=== PATIENT | male | born 1970 | race Caucasian/White ===

== ENCOUNTER 2018-06-13 10:24 | Emergency (ER) | payer BC ==
[~2018-06-13] VITALS: Ht 172.7 cm; Wt 75.7 kg
[~2018-06-13 10:24] MED LIST: ACYC5CRE2 TP; NO HOME MEDS; PRED20TA PO
[2018-06-13 11:02] LABS: CLARITY,URINE CLOUDY (Clear); COLOR,URINE AMBER (Yellow); GLUCOSE, URINE NEGATIVE (Neg); KETONES,URINE 15 mg/dl (Neg); LEUKOCYTE ESTERASE ,URINE NEGATIVE (Neg); NITRITES, URINE NEGATIVE (Neg); OCCULT BLOOD,URINE SMALL (Neg); PH,URINE 5.5 (4.8-8.0); PROTEIN,URINE >=300 mg/dl (Neg)
[2018-06-13 11:04] LABS: UA COLLECTION TYPE CLN CATCH MIDSTREAM
[2018-06-13 11:07] LABS: MUCUS STRANDS MODERATE /LPF (Neg); SQUAMOUS EPITHELIAL CELL,UR FEW /LPF (FEW)
[2018-06-13 11:08] LABS: BACTERIA,URINE 1+ /HPF (Neg)
[2018-06-13 11:09] LABS: WBC,URINE 0-4 /HPF (0-4)
[2018-06-13 11:11] LABS: BASOPHILS % (AUTO) 0.2 % (0-1); EOSINOPHILS # (AUTO) 0.1 X10'3 (0-0.9); EOSINOPHILS % (AUTO) 0.9 % (0-6); HEMOGLOBIN 14.4 g/dl (14.0-17.9); LYMPHOCYTES # (AUTO) 0.8 X10'3 (1.1-4.8); LYMPHOCYTES % (AUTO) 6.1 % (21-51); MEAN CORPUSCULAR HEMOGLOBIN 31.7 PG (27.0-31.0); MEAN CORPUSCULAR HGB CONC 33.5 % (33.0-36.5); MEAN CORPUSCULAR VOLUME 94.6 FL (78-98); MONOCYTES # (AUTO) 1.1 X10'3 (0-0.9); MONOCYTES % (AUTO) 8.2 % (2-12); NEUTROPHILS # (AUTO) 11.6 X10'3 (1.8-7.7); NEUTROPHILS % (AUTO) 84.6 % (42-75); PLATELET COUNT 247 X10'3 (140-440); RED BLOOD COUNT 4.54 X10'6 (4.70-6.10); WHITE BLOOD COUNT 13.7 X10'3 (4.5-11.0)
[2018-06-13] MEDS ORDERED: albuterol 2.5 MG/3 ML nebule NEB ONE (11:15)
[2018-06-13] MEDS ORDERED: ondansetron/PF 4mg/2ml inj IV ONE (11:15)
[2018-06-13] MEDS ORDERED: normal saline 1000ML IV soln IVB ONE (11:15)
[2018-06-13] MEDS ORDERED: acetaminophen 325mg tablet PO STA (11:15)
[2018-06-13] MEDS ORDERED: ketorolac trometh. 30mg/ml inj. IV ONE (11:15)
[2018-06-13 11:26] LABS: LARGE PLATELETS FEW; PLATELET ESTIMATE NORMAL
[2018-06-13 11:27] LABS: ALANINE AMINOTRANSFERASE 25 U/L (12-78); ALBUMIN 2.9 G/DL (3.4-5.0); ALBUMIN/GLOBULIN RATIO 0.5 (1.1-1.5); ALKALINE PHOSPHATASE 102 IU/L (46-116); ANION GAP 13 (8-16); ASPARTATE AMINO TRANSFERASE 11 U/L (10-37); BLOOD UREA NITROGEN 10 MG/DL (7-18); BUN/CREATININE RATIO 10.8 (5.4-32.0); CALCIUM 9.6 MG/DL (8.5-10.1); CHLORIDE 94 MMOL/L (99-107); CREATININE 0.93 MG/DL (0.60-1.10); GLUCOSE 112 MG/DL (70-104); POTASSIUM 3.7 MMOL/L (3.5-5.1); SODIUM 133 MMOL/L (135-145); TOTAL CARBON DIOXIDE 25.8 MMOL/L (24-32); TOTAL PROTEIN 8.3 G/DL (6.4-8.2); eGFR 87 ML/MIN
[2018-06-13 11:29] LABS: PARTIAL THROMBOPLASTIN TIME 35 SECONDS (22-32)
[2018-06-13] MEDS ORDERED: levoFLOXACIN-Levaquin 750MG/D5 150 ML IV ONE (11:35)
[2018-06-13 12:48] VITALS: BP 112/63
[2018-06-13] MEDS ORDERED: HYDROcodone/acetaminophen 10/325mg tab PO ONE (12:55)
[2018-06-13] MEDS ORDERED: TAM75C PO (13:46)
[2018-06-13] MEDS ORDERED: HYDR-4353 PO (13:46)
[2018-06-13] MEDS ORDERED: LEVO750T21 PO (13:46)
== END 2018-06-13 14:01 | disposition home or self-care (01) ==
LOC: ER 10:24
DX: J18.9 Pneumonia, unspecified organism (principal); R11.2 Nausea with vomiting, unspecified; F17.200 Nicotine dependence, unspecified, uncomplicated; Z98.890 Other specified postprocedural states; Z79.899 Other long term (current) drug therapy
CPT/HCPCS: 36415; 71045; 80053; 81001; 83605; 84145; 85025; 85610; 85730; 87040; 93005; 94640; 94760; 96361; 96365; 96366; 96375; 99284; J1885; J1956; J2405; J7030

== ENCOUNTER 2021-11-19 18:54 | Inpatient (IN) | payer BC ==
[~2021-11-19] VITALS: Ht 177.8 cm; Wt 75.0 kg
[~2021-11-19 18:54] MED LIST changes: -ACYC5CRE2 TP; -PRED20TA PO
--- NOTE | 2021-11-19 19:25 | NUR ---
PER [facility], ONLY CHEST XRAY FOR NOW
[2021-11-19 20:50] LABS: BASOPHILS % (AUTO) 0.3 % (0-1); EOSINOPHILS # (AUTO) 0.1 X10'3 (0-0.9); EOSINOPHILS % (AUTO) 1.1 % (0-6); HEMATOCRIT 40.1 % (42.0-52.0); HEMOGLOBIN 13.3 g/dl (14.0-17.9); LYMPHOCYTES # (AUTO) 0.8 X10'3 (1.1-4.8); LYMPHOCYTES % (AUTO) 7.3 % (21-51); MEAN CORPUSCULAR HEMOGLOBIN 31.1 PG (27.0-31.0); MEAN CORPUSCULAR HGB CONC 33.3 g/dL (33.0-36.5); MEAN CORPUSCULAR VOLUME 93.5 FL (78-98); MEAN PLATELET VOLUME 7.6 FL (7.4-10.4); MONOCYTES # (AUTO) 1.2 X10'3 (0-0.9); MONOCYTES % (AUTO) 10.5 % (2-12); NEUTROPHILS % (AUTO) 80.8 % (42-75); PLATELET COUNT 278 X10'3 (140-440); RED BLOOD COUNT 4.29 X10'6 (4.70-6.10); RED CELL DISTRIBUTION WIDTH 13.9 % (11.5-14.5); WHITE BLOOD COUNT 11.2 X10'3 (4.5-11.0)
[2021-11-19 20:58] LABS: ALANINE AMINOTRANSFERASE 23 U/L (12-78); ALBUMIN 2.2 G/DL (3.4-5.0); ALBUMIN/GLOBULIN RATIO 0.5 (1.1-1.5); ALKALINE PHOSPHATASE 129 IU/L (46-116); ANION GAP 8 (8-16); ASPARTATE AMINO TRANSFERASE 10 U/L (10-37); BILIRUBIN,TOTAL 0.4 MG/DL (0.1-1.0); BLOOD UREA NITROGEN 5 MG/DL (7-18); BUN/CREATININE RATIO 6.8 (5.4-32.0); CALCIUM 8.8 MG/DL (8.5-10.1); CHLORIDE 98 MMOL/L (99-107); CREATININE 0.74 MG/DL (0.60-1.10); GLUCOSE 114 MG/DL (70-104); POTASSIUM 3.8 MMOL/L (3.5-5.1); SODIUM 138 MMOL/L (135-145); TOTAL CARBON DIOXIDE 32.2 MMOL/L (24-32); eGFR > 90 ML/MIN
[2021-11-19] MEDS ORDERED: cefTRIAXone 1g/NS 100ml IVPB 100 ML IV ONE (23:00)
[2021-11-19] MEDS ORDERED: azithromycin/NS 500mg/250ml 250 ML IV ONE (23:00)
[2021-11-20 04:15] VITALS: BP 114/73
[2021-11-20] MEDS ORDERED: mag hydrox/Alum hydrox/simeth 30ml oral suspension PO PRN (04:20)
[2021-11-20] MEDS ORDERED: acetaminophen 325mg tablet PO PRN ×2 (04:20)
[2021-11-20] MEDS ORDERED: magnesium hydroxide 30ml (MOM) UD suspension PO PRN (04:20)
[2021-11-20] MEDS ORDERED: HYDROcodone/acetaminophen 5mg/325mg tablet PO PRN (04:20)
[2021-11-20] MEDS ORDERED: morphine 2 MG/ML inj. syringe IV PRN ×2 (04:20)
[2021-11-20] MEDS ORDERED: bisacodyl 10mg suppository rectal RC PRN (04:20)
[2021-11-20] MEDS ORDERED: ondansetron 4mg rapidly disintigrating tab PO PRN (04:20)
[2021-11-20] MEDS ORDERED: diphenhydrAMINE 25mg capsule PO PRN (04:20)
[2021-11-20] MEDS ORDERED: ondansetron/PF 4mg/2ml inj IV PRN (04:20)
[2021-11-20] MEDS ORDERED: diphenhydrAMINE 50 mg/ml inj IV PRN (04:20)
[2021-11-20] MEDS: HYDROcodone/acetaminophen 10/325mg tab PO PRN ×4 (04:51→22:29)
[2021-11-20] MEDS: normal saline 1000ml 1,000 ML IV SCH ×2 (04:51→14:20)
--- NOTE | 2021-11-20 06:30 | NUR ---
Problems reprioritized. Patient report given, questions answered & plan of care reviewed with PETEY SWANN.
--- NOTE | 2021-11-20 06:36 | NUR ---
Patient in room [facility]TH[facility] 4006. I have received report from HUE Hooks and had the opportunity to ask questions and assume patient care.
[2021-11-20 07:02] VITALS: BP 114/73
[2021-11-20 07:04] LABS: APTT 31 SECONDS (22-32)
[2021-11-20 07:18] LABS: MAGNESIUM 1.9 MG/DL (1.5-2.4); PHOSPHORUS 4.2 MG/DL (2.3-4.5)
[2021-11-20] MEDS: dexamethasone 4mg/ml inj IV SCH ×2 (07:54→20:29)
[2021-11-20] MEDS: pantoprazole 40mg Tablet.DR PO SCH (07:54)
[2021-11-20] MEDS: docusate sod 100mg capsule PO SCH ×2 (07:54→20:29)
[2021-11-20] MEDS: enoxaparin 40mg/0.4ml syringe SUBCUT SCH ×2 (07:55→20:29)
[2021-11-20] MEDS: nicotine 21mg patch - 24 hr TD SCH (07:55)
[2021-11-20 09:29] LABS: C-REACTIVE PROTEIN 34.94 MG/DL (0.0-0.5)
[2021-11-20 10:48] VITALS: BP 110/66
[2021-11-20 14:00] VITALS: BP 110/70
[2021-11-20] MEDS ORDERED: DUPI300P (16:24)
[2021-11-20] MEDS ORDERED: HYDR-3686 PO (16:24)
[2021-11-20] MEDS ORDERED: MONT-40 PO (16:24)
[2021-11-20 17:00] VITALS: BP 112/69
--- NOTE | 2021-11-20 18:43 | NUR ---
Problems reprioritized. Patient report given, questions answered & plan of care reviewed with HUE Boyer.
[2021-11-20] MEDS: metroNIDAZOLE-Flagyl 500mg/NS 100 ML IV SCH (20:28)
[2021-11-20] MEDS ORDERED: temazepam 15mg capsule PO PRN (21:00)
[2021-11-20 22:00] VITALS: BP 108/70
[2021-11-20] MEDS: CefTRIAXone 2gm/NS 100ml IVPB 100 ML IV SCH (22:08)
[2021-11-21] MEDS: normal saline 1000ml 1,000 ML IV SCH ×4 (00:20→14:05)
[2021-11-21 06:02] LABS: BASOPHILS # (AUTO) 0.1 X10'3 (0-0.2); BASOPHILS % (AUTO) 0.4 % (0-1); EOSINOPHILS % (AUTO) 0 % (0-6); HEMATOCRIT 37.2 % (42.0-52.0); HEMOGLOBIN 12.2 g/dl (14.0-17.9); LYMPHOCYTES # (AUTO) 0.7 X10'3 (1.1-4.8); LYMPHOCYTES % (AUTO) 5.5 % (21-51); MEAN CORPUSCULAR HGB CONC 32.8 g/dL (33.0-36.5); MEAN CORPUSCULAR VOLUME 94.3 FL (78-98); MEAN PLATELET VOLUME 7.7 FL (7.4-10.4); MONOCYTES # (AUTO) 0.5 X10'3 (0-0.9); MONOCYTES % (AUTO) 4.3 % (2-12); NEUTROPHILS # (AUTO) 10.8 X10'3 (1.8-7.7); NEUTROPHILS % (AUTO) 89.8 % (42-75); PLATELET COUNT 326 X10'3 (140-440); RED BLOOD COUNT 3.94 X10'6 (4.70-6.10); RED CELL DISTRIBUTION WIDTH 13.8 % (11.5-14.5); WHITE BLOOD COUNT 12.1 X10'3 (4.5-11.0)
--- NOTE | 2021-11-21 06:15 | NUR ---
Problems reprioritized. Patient report given, questions answered & plan of care reviewed with Albert SWANN. Addendum: 11/21/21 at 0615 by Rosalind Vicente RN Amended: Links added.
[2021-11-21 06:16] LABS: D-DIMER 5.92 MG/L FEU (0-0.50)
--- NOTE | 2021-11-21 06:22 | NUR ---
Patient in room [facility]TH[facility] 4006. I have received report from HUE Boyer and had the opportunity to ask questions and assume patient care.
[2021-11-21 06:29] LABS: ALANINE AMINOTRANSFERASE 17 U/L (12-78); ALBUMIN 1.6 G/DL (3.4-5.0); ALBUMIN/GLOBULIN RATIO 0.4 (1.1-1.5); ALKALINE PHOSPHATASE 115 IU/L (46-116); ANION GAP 1 (8-16); ASPARTATE AMINO TRANSFERASE 10 U/L (10-37); BILIRUBIN,TOTAL 0.1 MG/DL (0.1-1.0); BLOOD UREA NITROGEN 10 MG/DL (7-18); BUN/CREATININE RATIO 15.9 (5.4-32.0); CALCIUM 8.5 MG/DL (8.5-10.1); CHLORIDE 102 MMOL/L (99-107); CHOL/HDL RATIO 5.4 (0.00-4.99); CHOLESTEROL 152 MG/DL (0-200); CREATININE 0.63 MG/DL (0.60-1.10); GLUCOSE 164 MG/DL (70-104); HDL CHOLESTEROL 28 MG/DL (35-60); LACTATE DEHYDROGENASE 84 U/L (85-227); LDL CHOLESTEROL 89 MG/DL (50-100); MAGNESIUM 2.1 MG/DL (1.5-2.4); PHOSPHORUS 4.4 MG/DL (2.3-4.5); POTASSIUM 4.2 MMOL/L (3.5-5.1); SODIUM 134 MMOL/L (135-145); TOTAL CARBON DIOXIDE 30.6 MMOL/L (24-32); TOTAL PROTEIN 6.1 G/DL (6.4-8.2); TRIGLYCERIDES 102 MG/DL (20-135); eGFR > 90 ML/MIN
[2021-11-21 06:31] LABS: C-REACTIVE PROTEIN 25.52 MG/DL (0.0-0.5)
[2021-11-21 06:37] VITALS: BP 99/65
[2021-11-21] MEDS: docusate sod 100mg capsule PO SCH ×2 (07:28→19:19)
[2021-11-21] MEDS: pantoprazole 40mg Tablet.DR PO SCH (07:28)
[2021-11-21] MEDS: enoxaparin 40mg/0.4ml syringe SUBCUT SCH ×2 (07:28→19:19)
[2021-11-21] MEDS: HYDROcodone/acetaminophen 10/325mg tab PO PRN ×3 (07:29→19:19)
[2021-11-21] MEDS: metroNIDAZOLE-Flagyl 500mg/NS 100 ML IV SCH ×2 (07:29→19:18)
[2021-11-21] MEDS: dexamethasone 4mg/ml inj IV SCH ×2 (07:29→19:19)
[2021-11-21] MEDS: nicotine 21mg patch - 24 hr TD SCH ×2 (07:29→07:59)
[2021-11-21] MEDS ORDERED: azithromycin 250mg tablet PO SCH (08:00)
[2021-11-21] MEDS ORDERED: cefTRIAXone 1g/NS 100ml IVPB 100 ML IV SCH (08:00)
[2021-11-21] MEDS: CefTRIAXone 2gm/NS 100ml IVPB 100 ML IV SCH (08:45)
[2021-11-21 11:12] VITALS: BP 101/60
[2021-11-21 14:00] VITALS: BP 116/69
[2021-11-21 18:00] VITALS: BP 102/70
--- NOTE | 2021-11-21 18:23 | NUR ---
Problems reprioritized. Patient report given, questions answered & plan of care reviewed with HUE Boyer.
[2021-11-22] MEDS: normal saline 1000ml 1,000 ML IV SCH ×3 (00:50→20:05)
[2021-11-22 06:00] VITALS: BP 115/76
[2021-11-22 06:05] LABS: BASOPHILS # (AUTO) 0.1 X10'3 (0-0.2); BASOPHILS % (AUTO) 0.6 % (0-1); EOSINOPHILS % (AUTO) 0.1 % (0-6); HEMATOCRIT 35.9 % (42.0-52.0); LYMPHOCYTES # (AUTO) 1.4 X10'3 (1.1-4.8); LYMPHOCYTES % (AUTO) 11.5 % (21-51); MEAN CORPUSCULAR HEMOGLOBIN 31.6 PG (27.0-31.0); MEAN CORPUSCULAR HGB CONC 33.5 g/dL (33.0-36.5); MEAN CORPUSCULAR VOLUME 94.6 FL (78-98); MEAN PLATELET VOLUME 7.9 FL (7.4-10.4); MONOCYTES # (AUTO) 0.6 X10'3 (0-0.9); MONOCYTES % (AUTO) 5.3 % (2-12); NEUTROPHILS # (AUTO) 10.1 X10'3 (1.8-7.7); NEUTROPHILS % (AUTO) 82.5 % (42-75); PLATELET COUNT 386 X10'3 (140-440); RED CELL DISTRIBUTION WIDTH 13.7 % (11.5-14.5); WHITE BLOOD COUNT 12.3 X10'3 (4.5-11.0)
[2021-11-22 06:23] LABS: D-DIMER 7.15 MG/L FEU (0-0.50)
--- NOTE | 2021-11-22 06:26 | NUR ---
Problems reprioritized. Patient report given, questions answered & plan of care reviewed with Chelsey SWANN. Addendum: 11/22/21 at 06 by Rosalind Vicente RN Amended: Links added.
[2021-11-22 06:41] LABS: ALANINE AMINOTRANSFERASE 18 U/L (12-78); ALBUMIN 1.8 G/DL (3.4-5.0); ALBUMIN/GLOBULIN RATIO 0.5 (1.1-1.5); ALKALINE PHOSPHATASE 107 IU/L (46-116); ANION GAP 9 (8-16); ASPARTATE AMINO TRANSFERASE 14 U/L (10-37); BILIRUBIN,TOTAL 0.1 MG/DL (0.1-1.0); BLOOD UREA NITROGEN 11 MG/DL (7-18); BUN/CREATININE RATIO 17.2 (5.4-32.0); C-REACTIVE PROTEIN 9.07 MG/DL (0.0-0.5); CALCIUM 8.6 MG/DL (8.5-10.1); CHLORIDE 106 MMOL/L (99-107); CREATININE 0.64 MG/DL (0.60-1.10); GLUCOSE 126 MG/DL (70-104); LACTATE DEHYDROGENASE 132 U/L (85-227); MAGNESIUM 2.2 MG/DL (1.5-2.4); PHOSPHORUS 4.3 MG/DL (2.3-4.5); POTASSIUM 4.1 MMOL/L (3.5-5.1); SODIUM 144 MMOL/L (135-145); TOTAL CARBON DIOXIDE 28.6 MMOL/L (24-32); TOTAL PROTEIN 5.7 G/DL (6.4-8.2); eGFR > 90 ML/MIN
--- NOTE | 2021-11-22 07:07 | NUR ---
Patient in room [facility]TH[facility] 4006. I have received report from HUE SHANKAR and had the opportunity to ask questions and assume patient care.
[2021-11-22] MEDS: docusate sod 100mg capsule PO SCH ×2 (08:00→20:00)
[2021-11-22] MEDS: nicotine 21mg patch - 24 hr TD SCH (08:00)
[2021-11-22] MEDS: HYDROcodone/acetaminophen 10/325mg tab PO PRN ×3 (08:06→20:05)
[2021-11-22] MEDS: metroNIDAZOLE-Flagyl 500mg/NS 100 ML IV SCH ×2 (08:06→20:04)
[2021-11-22] MEDS: dexamethasone 4mg/ml inj IV SCH ×2 (08:06→20:04)
[2021-11-22] MEDS: pantoprazole 40mg Tablet.DR PO SCH (08:06)
[2021-11-22] MEDS: enoxaparin 40mg/0.4ml syringe SUBCUT SCH ×2 (08:08→20:04)
[2021-11-22] MEDS: CefTRIAXone 2gm/NS 100ml IVPB 100 ML IV SCH (09:47)
[2021-11-22 10:00] VITALS: BP 120/73
[2021-11-22] MEDS: ALBUTEROL INHALER 1 PUFF/90 MCG INHALation IH PRN (10:01)
[2021-11-22 14:00] VITALS: BP 113/68
[2021-11-22 18:30] VITALS: BP 112/70
--- NOTE | 2021-11-22 19:01 | NUR ---
Problems reprioritized. Patient report given, questions answered & plan of care reviewed with HUE MIRELES.
[2021-11-22 22:00] VITALS: BP 120/72
[2021-11-23] MEDS: HYDROcodone/acetaminophen 10/325mg tab PO PRN ×3 (00:03→08:38)
[2021-11-23 05:00] VITALS: BP 118/73
[2021-11-23 05:56] LABS: BASOPHILS # (AUTO) 0.1 X10'3 (0-0.2); BASOPHILS % (AUTO) 0.6 % (0-1); EOSINOPHILS % (AUTO) 0.3 % (0-6); HEMATOCRIT 37.5 % (42.0-52.0); HEMOGLOBIN 12.6 g/dl (14.0-17.9); LYMPHOCYTES # (AUTO) 1.1 X10'3 (1.1-4.8); LYMPHOCYTES % (AUTO) 11.6 % (21-51); MEAN CORPUSCULAR HEMOGLOBIN 31.2 PG (27.0-31.0); MEAN CORPUSCULAR HGB CONC 33.5 g/dL (33.0-36.5); MEAN CORPUSCULAR VOLUME 93.3 FL (78-98); MEAN PLATELET VOLUME 7.3 FL (7.4-10.4); MONOCYTES # (AUTO) 0.7 X10'3 (0-0.9); MONOCYTES % (AUTO) 7.2 % (2-12); NEUTROPHILS # (AUTO) 7.5 X10'3 (1.8-7.7); NEUTROPHILS % (AUTO) 80.3 % (42-75); PLATELET COUNT 419 X10'3 (140-440); RED BLOOD COUNT 4.02 X10'6 (4.70-6.10); RED CELL DISTRIBUTION WIDTH 13.8 % (11.5-14.5); WHITE BLOOD COUNT 9.4 X10'3 (4.5-11.0)
[2021-11-23 06:06] LABS: D-DIMER 7.72 MG/L FEU (0-0.50)
[2021-11-23 06:07] LABS: ALANINE AMINOTRANSFERASE 73 U/L (12-78); ALBUMIN 1.7 G/DL (3.4-5.0); ALBUMIN/GLOBULIN RATIO 0.4 (1.1-1.5); ALKALINE PHOSPHATASE 180 IU/L (46-116); ANION GAP 5 (8-16); ASPARTATE AMINO TRANSFERASE 45 U/L (10-37); BILIRUBIN,TOTAL 0.2 MG/DL (0.1-1.0); BLOOD UREA NITROGEN 9 MG/DL (7-18); BUN/CREATININE RATIO 14.1 (5.4-32.0); C-REACTIVE PROTEIN 4.65 MG/DL (0.0-0.5); CALCIUM 8.3 MG/DL (8.5-10.1); CHLORIDE 106 MMOL/L (99-107); CREATININE 0.64 MG/DL (0.60-1.10); GLUCOSE 134 MG/DL (70-104); LACTATE DEHYDROGENASE 131 U/L (85-227); PHOSPHORUS 4.6 MG/DL (2.3-4.5); POTASSIUM 4.2 MMOL/L (3.5-5.1); SODIUM 141 MMOL/L (135-145); TOTAL CARBON DIOXIDE 29.6 MMOL/L (24-32); TOTAL PROTEIN 5.5 G/DL (6.4-8.2); eGFR > 90 ML/MIN
--- NOTE | 2021-11-23 06:16 | NUR ---
Patient in room [facility]TH[facility] 4006. I have received report from HUE MIRELES and had the opportunity to ask questions and assume patient care.
--- NOTE | 2021-11-23 07:23 | NUR ---
Initial: Pt admitted w/ RLL lesion vs PNA vs endobronchial lesion, and Covid per EMR. Currently on Regular diet w/ mostly 100% intake of meals meeting est nutrient needs at this time. LBM 11/22 receiving routine colace. No nutrition intervention implemented at this time, will continue to monitor. Recs: 1. Continue Regular diet as tolerated 2. Monitor need for additional protein 3. Bowel care per rx 4. Scaled wts Addendum: 11/23/21 at [address] Amended: Links added.
[2021-11-23 07:45] LABS: PLATELET ESTIMATE NORMAL; TOTAL CELLS COUNTED 100
[2021-11-23] MEDS: nicotine 21mg patch - 24 hr TD SCH (08:00)
[2021-11-23] MEDS: docusate sod 100mg capsule PO SCH (08:00)
[2021-11-23] MEDS: metroNIDAZOLE-Flagyl 500mg/NS 100 ML IV SCH (08:38)
[2021-11-23] MEDS: enoxaparin 40mg/0.4ml syringe SUBCUT SCH (08:38)
[2021-11-23] MEDS: pantoprazole 40mg Tablet.DR PO SCH (08:38)
[2021-11-23] MEDS: normal saline 1000ml 1,000 ML IV SCH (08:38)
[2021-11-23] MEDS: dexamethasone 4mg/ml inj IV SCH (08:39)
[2021-11-23 10:00] VITALS: BP 115/62
[2021-11-23] MEDS: CefTRIAXone 2gm/NS 100ml IVPB 100 ML IV SCH (10:54)
[2021-11-23] MEDS: ALBUTEROL INHALER 1 PUFF/90 MCG INHALation IH PRN (11:16)
[2021-11-23] MEDS ORDERED: NICO-687 TD (12:07)
[2021-11-23] MEDS ORDERED: METR-159 PO (12:07)
[2021-11-23] MEDS ORDERED: CEFD300C3 PO (12:07)
--- NOTE | 2021-11-23 14:00 | NUR ---
PATIENT STABLE AND APPROPRIATE FOR DISCHARGE, IV REMOVED, TELE REMOVED, ALL BELONGINGS SENT WITH PATIENT INCLUDING AN INHALER, EDUCATION GIVEN, NEW MEDS CALLED INTO PREFERRED PHARMACY, PATIENT TAKEN TO LOBBY BY WHEELCHAIR TO AN AWAITING CAR WHERE WILL TAKE PATIENT HOME
== END 2021-11-23 14:00 | disposition home or self-care (01) | DRG 177 ==
LOC: ER 18:55 → ED HOLD 11-20 00:32 → UNDOADMIN 11-20 00:32 → ORTHO 4S 11-20 04:08 → ED HOLD 11-20 04:08 → ORTHO 4S 11-20 23:26 → ED HOLD 11-20 23:26
PROVIDERS: ADMIT Family Medicine; ATTEND Family Medicine
DX: U07.1 COVID-19 (principal); J12.82 Pneumonia due to coronavirus disease 2019; J96.01 Acute respiratory failure with hypoxia; J90 Pleural effusion, not elsewhere classified; J94.8 Other specified pleural conditions; J98.11 Atelectasis; F17.210 Nicotine dependence, cigarettes, uncomplicated; J98.4 Other disorders of lung; G47.25 Circadian rhythm sleep disorder, jet lag type; R07.2 Precordial pain; Z79.899 Other long term (current) drug therapy
CPT/HCPCS: 36415; 71045; 71250; 71275; 80053; 80061; 83036; 83605; 83615; 83735; 83880; 84100; 84145; 85007; 85025; 85379; 85610; 85730; 86140; 87040; 87635; 93308; 94640; 94667; 94668; 94760; 99285; A4615; G0378; J0456; J0696; J1100; J1650; J3490; J7030

== ENCOUNTER 2024-02-07 11:01 | Emergency (ER) | payer BC ==
[~2024-02-07] VITALS: Ht 180.3 cm; Wt 75.0 kg
[~2024-02-07 11:01] MED LIST changes: +DUPI300P; +HYDR-3686 PO; +MONT-40 PO; +NICO-687 TD; -NO HOME MEDS
[2024-02-07 11:02] VITALS: TEMP 97.8
[2024-02-07] MEDS: aspirin 81mg tab.chew PO ONE (11:05)
[2024-02-07] MEDS: nitroGLYCERIN 0.4mg SUBLingual tab SL PRN (11:06)
[2024-02-07 11:27] LABS: BASOPHILS % (AUTO) 0.6 % (0-1); EOSINOPHILS # (AUTO) 0.1 X10'3 (0-0.9); EOSINOPHILS % (AUTO) 3.1 % (0-6); HEMATOCRIT 46.4 % (42.0-52.0); HEMOGLOBIN 15.8 g/dl (14.0-17.9); LYMPHOCYTES # (AUTO) 1.3 X10'3 (1.1-4.8); LYMPHOCYTES % (AUTO) 31.5 % (21-51); MEAN CORPUSCULAR HEMOGLOBIN 33.2 PG (27.0-31.0); MEAN CORPUSCULAR VOLUME 97.5 FL (78-98); MEAN PLATELET VOLUME 7.5 FL (7.4-10.4); MONOCYTES # (AUTO) 0.4 X10'3 (0-0.9); MONOCYTES % (AUTO) 9.7 % (2-12); NEUTROPHILS # (AUTO) 2.2 X10'3 (1.8-7.7); NEUTROPHILS % (AUTO) 55.1 % (42-75); PLATELET COUNT 256 X10'3 (140-440); RED BLOOD COUNT 4.76 X10'6 (4.70-6.10); RED CELL DISTRIBUTION WIDTH 13.5 % (11.5-14.5); WHITE BLOOD COUNT 4.1 X10'3 (4.5-11.0)
[2024-02-07 11:49] LABS: ALBUMIN 3.8 G/DL (3.4-5.0); ANION GAP 10 (8-16); BLOOD UREA NITROGEN 10 MG/DL (7-18); BUN/CREATININE RATIO 12.3 (10.0-20.0); CALCIUM 9.3 MG/DL (8.5-10.1); CHLORIDE 104 MMOL/L (99-107); CREATININE 0.81 MG/DL (0.60-1.10); GLUCOSE 107 MG/DL (70-104); POTASSIUM 3.9 MMOL/L (3.5-5.1); PRO BRAIN NATRIURETIC PEPTIDE < 30 PG/ML (0-125); SODIUM 143 MMOL/L (135-145); TOTAL CARBON DIOXIDE 28.6 MMOL/L (24-32); eCRCL 113 ML/MIN; eGFR > 90 ML/MIN
[2024-02-07 12:28] LABS: D-DIMER < 0.19 MG/L FEU (0-0.50)
[2024-02-07] MEDS: normal saline 1000ML IV soln IVB ONE (12:56)
[2024-02-07] MEDS ORDERED: IBUP-1985 PO (14:01)
[2024-02-07 14:35] VITALS: BP 126/90; PULSE 86; RESP 18; O2SAT 95
== END 2024-02-07 14:37 | disposition home or self-care (01) ==
LOC: ER 11:02
DX: R07.89 Other chest pain (principal); Z88.8 Allergy status to other drugs, medicaments and biological substances; Z79.899 Other long term (current) drug therapy
CPT/HCPCS: 36415; 71045; 80048; 83880; 84484; 85025; 85379; 93005; 96360; 99285; J7030

== ENCOUNTER 2024-03-17 14:02 | Emergency (ER) | payer BC ==
[~2024-03-17] VITALS: Ht 177.8 cm; Wt 68.2 kg
[~2024-03-17 14:02] MED LIST changes: +IBUP-1985 PO
[2024-03-17 16:44] LABS: BASOPHILS % (AUTO) 0.3 % (0-1); EOSINOPHILS # (AUTO) 0.2 X10'3 (0-0.9); EOSINOPHILS % (AUTO) 2.8 % (0-6); HEMATOCRIT 45.1 % (42.0-52.0); HEMOGLOBIN 15.2 g/dl (14.0-17.9); LYMPHOCYTES # (AUTO) 1.2 X10'3 (1.1-4.8); LYMPHOCYTES % (AUTO) 21.2 % (21-51); MEAN CORPUSCULAR HEMOGLOBIN 33.4 PG (27.0-31.0); MEAN CORPUSCULAR HGB CONC 33.7 g/dL (33.0-36.5); MEAN CORPUSCULAR VOLUME 99.3 FL (78-98); MEAN PLATELET VOLUME 7.3 FL (7.4-10.4); MONOCYTES # (AUTO) 0.6 X10'3 (0-0.9); MONOCYTES % (AUTO) 9.5 % (2-12); NEUTROPHILS # (AUTO) 3.9 X10'3 (1.8-7.7); NEUTROPHILS % (AUTO) 66.2 % (42-75); PLATELET COUNT 225 X10'3 (140-440); RED BLOOD COUNT 4.55 X10'6 (4.70-6.10); RED CELL DISTRIBUTION WIDTH 13.3 % (11.5-14.5); WHITE BLOOD COUNT 5.8 X10'3 (4.5-11.0)
[2024-03-17 17:05] LABS: ALBUMIN 4.1 G/DL (3.4-5.0); ANION GAP 4 (8-16); BLOOD UREA NITROGEN 13 MG/DL (7-18); BUN/CREATININE RATIO 14.6 (10.0-20.0); CALCIUM 9.2 MG/DL (8.5-10.1); CHLORIDE 102 MMOL/L (99-107); CREATININE 0.89 MG/DL (0.60-1.10); GLUCOSE 97 MG/DL (70-104); POTASSIUM 4.2 MMOL/L (3.5-5.1); PRO BRAIN NATRIURETIC PEPTIDE 34 PG/ML (0-125); SODIUM 140 MMOL/L (135-145); TOTAL CARBON DIOXIDE 34.5 MMOL/L (24-32); eCRCL 94 ML/MIN; eGFR 90 ML/MIN
[2024-03-17 17:18] LABS: APTT 25 SECONDS (22-32); PROTHROMBIN TIME 10.7 SECONDS (9.0-12.0)
[2024-03-17 17:20] LABS: D-DIMER < 0.19 MG/L FEU (0-0.50)
[2024-03-17 17:38] VITALS: BP 125/89; PULSE 81; RESP 14; O2SAT 98
[2024-03-17 17:48] VITALS: TEMP 98
== END 2024-03-17 17:50 | disposition home or self-care (01) ==
LOC: ER 14:02
DX: C34.31 Malignant neoplasm of lower lobe, right bronchus or lung (principal); R04.2 Hemoptysis; R05.9 Cough, unspecified; F17.210 Nicotine dependence, cigarettes, uncomplicated; F10.90 Alcohol use, unspecified, uncomplicated; Z79.899 Other long term (current) drug therapy; Z98.890 Other specified postprocedural states
CPT/HCPCS: 36415; 71046; 80048; 83880; 85025; 85379; 85610; 85730; 87040; 99284